=== PATIENT | female | born 1960 | race Caucasian/White ===

== ENCOUNTER → 2020-05-19 15:44 | Outpatient (CLI) | payer OTHER, SELFPAY ==
[2020-05-19 15:52] LABS: Bacteria Urine None Seen; RBC Urine None Seen (0-5/HPF)
[2020-05-19 16:57] LABS: Appearance Urine UA CLEAR; Bilirubin Urine UA NEGATIVE (NEGATIVE); Color Urine UA YELLOW; Glucose Urine UA NEGATIVE (Negative); Ketones Urine UA NEGATIVE (NEGATIVE); Leukocyte Esterase Urine UA NEGATIVE (NEGATIVE); Nitrite Urine UA NEGATIVE (Negative); Occult Blood Urine UA NEGATIVE (Negative); Protein Urine UA NEGATIVE (Negative); Specific Gravity Urine UA 1.015 (1.000-1.035); Urobilinogen Urine UA 0.2 E.U./dL (0.2)
[2020-05-19 16:58] LABS: Add Manual Diff / Slide Review NO; Basophils Absolute Auto 100 /uL (0-100); Basophils Percent Auto 1.1 % (0-2); Eosinophils Absolute Auto 100 /uL (0-450); Eosinophils Percent Auto 2.1 % (2-4); Hematocrit 38.8 % (36-46); Hemoglobin 13.1 g/dL (12.0-16.0); Lymphocytes Absolute Auto 1400 /uL (1100-4500); Lymphocytes Percent Auto 26.7 % (25-40); Mean Corpuscular HGB Conc 33.7 % (30-36); Mean Corpuscular Volume 92.1 fL (80-100); Monocytes Absolute Auto 400 /uL (0-900); Monocytes Percent Auto 7.2 % (3-14); Neutrophils Absolute Auto 3400 /uL (1500-7000); Neutrophils Percent Auto 62.9 % (50-75); Platelet Count 261 X10^3/uL (150-400); Red Blood Cell Count 4.21 X10^6/uL (4.0-5.2); Red Cell Distribution Width 13.4 % (11.6-14.8); White Blood Cell Count 5.4 X10^3/uL (4.5-11.0)
[2020-05-19 17:05] LABS: Squamous Epithelial Cell Urine 0-1 /HPF (0-5/HPF); WBC Urine 0-1/HPF (0-5/HPF)
[2020-05-19 17:06] LABS: Culture Indicated Urine Cult Not Indicated
[2020-05-19 17:21] LABS: BUN Creatinine Ratio 20.7 (6-22); Blood Urea Nitrogen 17 mg/dL (7-17); Calcium 9.5 mg/dL (8.4-10.2); Carbon Dioxide 29 mmol/L (22-32); Chloride 101 mmol/L (98-107); Estimated Glomerular Filt Rate > 60.0 mL/min (>60); Glucose 84 mg/dL (80-110); HEMOLYSIS < 15 (0-50); Potassium 4.4 mmol/L (3.4-5.1); Sodium 137 mmol/L (137-145)
[2020-05-19 17:36] LABS: Hemoglobin A1C% w Est Avg Glu 5.5 % (4.0-6.0)
== END ==
PROVIDERS: Referring Provider Orthopaedic Surgery; Visit Provider Orthopaedic Surgery
DX: Z01.818 Encounter for other preprocedural examination (principal); Z01.812 Encounter for preprocedural laboratory examination; R73.9 Hyperglycemia, unspecified; N39.0 Urinary tract infection, site not specified
CPT/HCPCS: 36415; 80048; 81001; 83036; 85025; 93005

== ENCOUNTER → 2020-05-23 08:47 | Outpatient (CLI) | payer OTHER, SELFPAY ==
[2020-05-23 11:01] LABS: COVID19 -Nasal RAPID Negative (Negative)
== END ==
PROVIDERS: Visit Provider Physician Assistant
DX: Z01.812 Encounter for preprocedural laboratory examination (principal); Z20.822 Contact with and (suspected) exposure to COVID-19
CPT/HCPCS: 87635

== ENCOUNTER 2020-05-24 05:48 | Day surgery (SDC) | payer OTHER, SELFPAY ==
[2020-05-24] VITALS (20 sets, daily range): BP systolic 95–146; BP diastolic 48–78; PULSE 52–67; RESP 10–18; TEMP 36.1–36.9; O2SAT 97–100; BMI 20.3
--- NOTE | 2020-05-24 | DI.RAD.S_ITS ---
PROCEDURE: XR HIP W PEL IF DONE RT 2V INDICATIONS: INNER OP HIP TECHNIQUE: 2 view(s) of the hip acquired. COMPARISON: None. FINDINGS: Bones: Patient is status post right hip arthroplasty, with hardware components in expected positions. The hip joint appears congruent. The visualized bony structures appear intact. Soft tissues: Overlying postoperative changes are noted. No suspicious soft tissue densities. IMPRESSION: Normal right hip appearance after right total hip arthroplasty earlier same day. Dictated by: Brandon Hoffman M.D. on 06/14/2020 at 17:03 Approved by: Brandon Hoffman M.D. on 06/14/2020 at 17:03
--- NOTE | 2020-05-24 06:00 | DI.RAD.S_ITS ---
PROCEDURE: XR HIP W PEL IF DONE RT 2V INDICATIONS: post op films TECHNIQUE: AP pelvis and lateral view of the right hip acquired. COMPARISON: [facility], CR, XR PELVIS WITH LATERAL HIP RIGHT, 08/14/2019, 8:42. [facility], CR, XR PELVIS WITH LATERAL HIP RIGHT, 05/19/2020, 14:54. FINDINGS: Bones: Patient is status post right hip arthroplasty, with hardware components in expected positions. The hip joint appears congruent. The visualized bony structures appear intact. Soft tissues: Overlying postoperative changes are noted. No suspicious soft tissue densities. IMPRESSION: Right hip arthroplasty in anatomic alignment. Dictated by: Rosa Kaba M.D. on 05/24/2020 at 17:26 Approved by: Rosa Kaba M.D. on 05/24/2020 at 17:27
[2020-05-24] MEDS: ACETAMINOPHEN 325 MG TABLET 975 MG PO (06:58)
[2020-05-24] MEDS: VANCOMYCIN 1,000 MG/200 ML PIGGYBACK 200 MG IV (06:58)
[2020-05-24] MEDS: PREGABALIN 75 MG CAPSULE PO (06:59)
[2020-05-24] MEDS: CELECOXIB 200 MG CAPSULE PO (06:59)
[2020-05-24] MEDS: LACTATED RINGERS 1,000 ML 42 ML IV (07:17)
--- NOTE | 2020-05-24 07:34 | PM.PREOP ---
Pre-operative Note COVID-19 COVID-19 status: Negative Interval Note History & Physical reviewed/Exam performed by Physician: Yes Changes to H&P: No
--- NOTE | 2020-05-24 07:35 | P.OP_ITS ---
Operative Date/Time/Diagnoses Date of procedure: 05/24/20 Time of procedure: 07:59 Pre-op diagnosis: right hip OA Post-op diagnosis: same Procedure & Clinicians Procedure: right total hip arthroplasty anterior approach Same procedure as scheduled: Yes Indications: The patient has had progressively worsening right hip pain with radiographic changes consistent with arthritis. Non-operative management has failed and the patient has requested total hip replacement. The risks, benefits and alternatives to surgery were discussed with the patient prior to proceeding. Risks discussed included, but were not limited to, failure to relieve pain, leg length discrepancy, dislocation, stiffness, infection, nerve damage, deep venous thrombosis, pulmonary embolism, stroke, coma, heart attack, permanent paralysis and , as well as the potential need for eventual revision of the prosthetic. Surgeon: Iona Cox Brush Finisher: Brandon Godwin Anesthesia Type: General and Spinal Operative Notes Findings: Severe right hip arthritis, good stability, good bone Closure Type: primary Specimen(s): none sent Prosthetic devices, grafts, tissues, transplants, or devices: [employer]hew 54 R3, size 7 anthology standard offset, minus 3 x 36 Oxinium head, neutral liner, one 20 mm screw Estimated Blood Loss (mL): 250 Blood products transfused: none Procedure in detail: The patient was brought to the operating room. Patient was carefully positioned in the supine position. Time-out was performed and antibiotics were given. Anesthesia was induced. She was positioned in the on the table in order to allow hyperextension of the hip. The right lower extremity was prepped and draped in a standard sterile fashion. An anterior right hip incision was made 1 fingerbreadth lateral to the anterior superior iliac spine and extended distally towards the greater trochanter. Dissection was carried out through skin and subcutaneous tissues. Superficial hemostasis was achieved. The fascia over the tensor fascia pillo was defined and incised with a knife. Two Allis clamps were used to grasp the fascia. Tensor fascia pillo was retracted laterally. A gelpi retractor was placed. Dissection was carried out down along the neck. The circumflex vessels were carefully identified and cauterized with the Aqua Mantis. There was good visualization of the femoral neck. A Cobra was placed superior to the neck and the gluteus fibers were carefully stripped from that superior aspect of the capsule. A 2nd retractor was placed along the inferior aspect of the neck. The rectus insertion along the capsule was partially released. A 3rd retractor that was then gently placed over the rim of the acetabulum under the rectus. Capsule was carefully incised and released from the intertrochanteric line circumferentially superior to the mid sagittal line and inferiorly to the mid sagittal line until the lesser trochanter was palpable. A tag stitch was placed both in the superior and inferior limb of the capsular insertion. Along the acetabulum capsule was also released up to the mid sagittal 12:00 position. A portion of the labrum was resected. A saw was used to perform an osteotomy at the level of the intertrochanteric line and the junction of the superior femoral neck leaving approximately 1 finger breath of residual inferior neck above the lesser trochanter. A 2nd cut was made along the femoral neck at the base of the head and a napkin ring of neck was removed. Corkscrew was placed in the femoral head and the head was removed without difficulty. Retractors were then repositioned around the ac etabulum. Residual labrum was resected and additional osteophytes were removed. A reamer that was 4 mm below the templated size was placed by hand in the acetabulum and it was reamed to centralize the acetabulum. It was then reamed up to 2 under the templated size and fluoroscopy was brought in to confirm the position of the reaming and depth of reaming. I reamed 1 under the anticipated size. A trial cup was placed and noted that it was appropriately sized and fluoroscopy confirmed position and depth. The component was open and inserted without difficulty fluoroscopic imaging was used to confirm that the cup had been adequately seated and was well positioned. it was further stabilized with a single screw. Neutral poly liner was placed. The cup was tested and noted to be stable. Attention was then directed to the femur. The femur was gently hyperextended additional capsular release was performed as needed in order to allow adequate visualization of the proximal femur with elevation of the femur. Patient was placed in a hyperextended slightly adducted position with maximum external rotation. Box osteotome was used to check for any residual neck as well as sclerotic bone along the trochanter. [place] pepper was placed in the femur. Additional broaching was performed. Canal finder was used to determine the alignment of the canal and position. Size 1 broach was placed. The canal was then appropriately broached up to the templated size as long as there was adequate stability of the broach and serial advancement of the broach without excessive impingement. Specific attention was directed at avoiding varus attempting to direct the distal aspect of the broach more anteriorly and avoiding excessive anteversion. Trial reduction showed acceptable range of motion, good stability, no posterior impingement, restorationist of leg length and appropriate lateral shuck. I also hyperflexed the hip and checked that there was no impingement anteriorly and there was good stability with flexion, adduction and internal rotation. Marcaine and Exparel were injected. The stem was placed without difficulty. Repeat trial reduction and x-ray showed acceptable overall position, length, and no evidence of the femoral fracture. Final head was placed. Wound was meticulously irrigated with normal saline. The hip was reduced and additional Exparel and Marcaine were injected. The capsule was closed with interrupted nonabsorbable sutures. The fascia of the tensor was closed with interrupted and running Vicryl. No drain was placed. Any tensor fascia pillo muscle that appeared to be contused or injured which was a minimal amount was carefully resected. Capsule around the tensor was injected with Exparel and Marcaine. The skin was closed with barbed stitches for the subcutaneous tissue and skin. We also used surgical glue. The wound was dressed sterilely. Brief Betadine soak was also used and was meticulously irrigated with normal saline. Patient was transferred to recovery room in satisfactory condition. Complications: none Post-operative Condition: stable Disposition: Acute Care Plan for aftercare: The patient will be maintained on a standard total hip replacement protocol with weight bearing as tolerated and anterior hip pr ecautions. The patient will receive Aspirin and sequential compression devices for DVT prophylaxis. The patient will be discharged home when safe for the home environment.
[2020-05-24] MEDS: CEFAZOLIN 2 GM/100 ML FROZ.PIGGY IV ×2 (08:00→16:09)
[2020-05-24] MEDS: TRANEXAMIC ACID 1,000 MG VIAL 1000 MG INJ ×2 (08:14→10:26)
--- NOTE | 2020-05-24 08:39 | SUR.OPER ---
Supine on padded [place] table with bilateral legs secured in padded positioning boots and suspended in positioning spars, operative leg in traction per surgeon. Head on one pillow. Arm on non-operative side secured on padded armboard <90 degrees abduction. Arm on operative side padded and resting across chest then secured with tape over sheet. Padded perineal post in place per surgeon.
[2020-05-24] MEDS: BUPIVACAINE LIPOSOME 266 MG/20 ML VIAL INJ (08:52)
[2020-05-24] MEDS: BUPIVACAINE 0.5% W/ EPI (PF) 30 ML VIAL INJ (08:55)
[2020-05-24] MEDS: OXYCODONE IR 5 MG TABLET PO (11:43)
[2020-05-24] MEDS: ONDANSETRON 4 MG/2 ML INJ IV (11:43)
--- NOTE | 2020-05-24 12:08 | PC.NURSE ---
Day shift: Pt on unit at approx 1205 from PACU. Oriented to room and call light. RA 99%. VS WNL. Sensation limited BLE's at this time. PPP. She is A&Ox4. Denies any pain or nausea. AGrees to not get OOB w/o help from staff. SCD's tolerated. Dressing anterior rt hip Aquacel is CDI.
[2020-05-24] MEDS: LACTATED RINGERS 1,000 ML 125 ML IV ×2 (12:48→20:10)
[2020-05-24] MEDS: IBUPROFEN 400 MG TABLET PO ×4 (12:48→23:59)
--- NOTE | 2020-05-24 13:55 | PT.IIE ---
Current Diagnoses Unilateral primary osteoarthritis, right hip (05/24/20) Surgery Performed Operation Date: 05/24/20 07:45 Actual Procedures p Total Hip Arthroplasty/Anterior Approach(Right) - Iona Cox MD Surgical History (Last Updated 05/23/20 @ 15:16 by Katy Love, RN) History of appendectomy Medical History (Last Updated 05/23/20 @ 15:16 by Katy Love, RN) History of uterine fibroid Primary localized osteoarthrosis of pelvic region Physical Therapy Inpatient Evaluation/Re-Eval M1 PT/OT-IP Prior Functional Status Start: 05/24/20 14:30 Freq: NEEDED Status: Active Protocol: Document 05/24/20 13:55 AB (Rec: 05/24/20 14:48 AB [email or web address]) Medical Review Prior Functional Status Medical History Reviewed Yes Communication able to make needs known Mobility and Gait pt stated that she is independent with all mobilities and ambulation without AD Social History Household Members spouse,family Living Arrangements House Number of Floors (Floors) Two Floors Number of Stairs To Enter/Railing? 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; pt is going to stay at her son 's house in [facility] and will be here in [place] for ~ 6 weeks M2 PT-IP Current Condition Start: 05/24/20 14:30 Freq: NEEDED Status: Active Protocol: Document 05/24/20 13:55 AB (Rec: 05/24/20 14:48 AB [id number]) Physical Therapy Current Condition Current Condition Evaluation Date 05/24/20 Treatment Diagnosis s/p R SREEDHAR anterior approach; difficulty in walking Onset Date 05/24/20 Precautions Anterior Hip Precautions No Hip Extension,No Hip External Rotation Weight Bearing Status Weight Bearing Status Weight Bear as Tolerated Allowed Weight Bearing Amount (enter % RLE WBAT or #) (%) M3 PT-IP Subjective Start: 05/24/20 14:30 Freq: NEEDED Status: Active Protocol: Document 05/24/20 13:55 AB (Rec: 05/24/20 14:48 AB [email or web address]) Subjective Physical Therapy Visit Type Type Initial Evaluation Visit Start Time 13:55 Visit Stop Time 14:27 Total Visit Minutes 32 Number of SYSTEMS PROJECT MANAGER Visits 0 Physical Therapy Visit Comments Patient Comments pt is agreeable to do PT Therapy Pain Assessment Pain Present Pain Present Denied Pain M4 PT-IP Mobility and Gait Start: 05/24/20 14:30 Freq: NEEDED Status: Active Protocol: Document 05/24/20 13:55 AB (Rec: 05/24/20 14:48 AB [email or web address]) PT-Bed Mobility Assessment Supine to Sit Supine to Sit Standby Assistance Sit to Supine Sit to Supine Standby Assistance PT-Transfer Assessment Sit to and From Stand Sit to and from Stand Maximum Assistance,1 Person Assistance,Use of Upper Extremities Equipment Transfer Assistive Device Gait Belt,Front Wheeled Walker Orthotic/Prosthetic Devices or Brace: No Comments Mobility Comments educated pt on anterior hip precautions. pt completed supine to sit SBA and was able to sit on EOB SBA. pt without c/o dizziness. pt still c/o slight numbness on B thighs but able do move during MMT. completed sit to stand max A and noted decrease motor control on BLE with L> R. cued pt for quad activation and use of BUE on FWW for support. instructed for marching in place and pt completed with max A with decrease BLE motor control. instructed to sit back. ambulation is not appropriate at this time due to pt still has decrease motor control on BLE. pt completed sit to supine SBA. positioned in bed . call light and table placed within reach. Gait Assessment Comments Gait Comments completed marching in place using FWW max A and cues. pls refer to mobility section for details PT-Balance Assessment Sitting Balance and Reactions Static Sitting Balance Ability Good Dynamic Sitting Balance Ability Good Standing Balance and Reactions Static Standing Balance Ability Poor Dynamic Standing Balance Ability Poor Device Used FWW M5 PT-IP Objective Assessments Start: 05/24/20 14:30 Freq: NEEDED Status: Active Protocol: Document 05/24/20 13:55 AB (Rec: 05/24/20 14:48 AB [email or web address]) Orientation Orientation/Cognition Level of Alertness Alert Orientation Name,Age,Birthday,Month,Date, Year,Day of Week,Place, Situation Language Function Ability No Deficits Noted Safety Awareness Decreased Safety Awareness Memory Description No Deficits Noted Gross Range of Motion Lower Extremity ROM Assessment Within Functional Limits Strength Lower Extremity Strength Assessment Bilaterally Impaired Hip 4-/5 Knee 4-/5 Ankle bilateral foot drop L>R Sensation Assessment Sensation Sensation Description Numbness Comments Sensation Comments B thigh numbness but able to feel from knees down to B feet M6 PT-IP Treatment Start: 05/24/20 14:30 Freq: NEEDED Status: Active Protocol: Document 05/24/20 13:55 AB (Rec: 05/24/20 14:48 AB [email or web address]) Physical Therapy Treatment Education Education Provided Precautions,Weight Bearing Status,Post-Op Packet,Safety M7 PT-IP Assessment and Plan Start: 05/24/20 14:30 Freq: NEEDED Status: Active Protocol: Document 05/24/20 13:55 AB (Rec: 05/24/20 14:48 AB [email or web address]) PT Summary Assessment and Plan Potential Rehabilitation Potential Good Status of Condition at Evaluation Evolving Summary Impairments Pain,ROM,Strength,Balance, Coordination,Sensation,Tone, Cognition,Bed Mobility, Transfers,Gait,Activity Tolerance Assessment Summary pt just had surgery this morning S/P R SREEDHAR anterior approach. pt was able to completed sit to stand and maintain standing using FWW max A and cues but limited due to decrease motor control on BLE. will require further assessment for safe d/c plan. Goals Bed Mobility Goal Independent Transfer Goal Independent,Front Wheeled Walker Gait Goal Independent,Front Wheel Walker Gait Distance 200 Other Goals improve ambulation using SPC 250 ft SBA up/down 4 steps L rail SBA and 8 steps R rail SBA Days to Meet Goals 5 Frequency of Treatment Frequency Of Treatment Twice a Day Treatment Plan Physical Therapy Treatment Plan Bed Mobility Training,Transfer Training,Gait Training, Therapeutic Exercise,Balance Retraining,Post Op Education, Discharge Planning,Hot or Cold Pack,Neuromuscular Re-ed, Coordination Retraining,Manual Therapy Precautions Anterior Hip Precautions No Hip Extension,No Hip External Rotation Discharge Recommendations PT Discharge Recommendations Home with Assistance, Outpatient PT Transportation Needs at Discharge Private Vehicle
[2020-05-24] MEDS: ACETAMINOPHEN 325 MG TABLET 650 MG PO ×2 (14:33→20:06)
[2020-05-24] MEDS: DOCUSATE 100 MG CAPSULE PO (20:06)
[2020-05-24] MEDS: ASPIRIN EC 81 MG TABLET PO (20:06)
[2020-05-25] MEDS: CEFAZOLIN 2 GM/100 ML FROZ.PIGGY IV
[2020-05-25 04:37] VITALS: BP 120/72; PULSE 53; RESP 18; TEMP 36.8; O2SAT 100
[2020-05-25] MEDS: OXYCODONE IR 5 MG TABLET PO (04:38)
[2020-05-25] MEDS: IBUPROFEN 400 MG TABLET PO ×2 (05:26→08:21)
[2020-05-25 06:14] LABS: Hematocrit 35.8 % (36-46)
--- NOTE | 2020-05-25 07:49 | P.DS_ITS ---
History of Present Illness History of Present Illness Date Patient Seen: 05/25/20 Time Patient Seen: 07:49 Chief complaint: OPB Narrative: Please refer to previously documented HPI submitted to the chart. Discharge Providers Provider Discharge Date: 05/25/20 Primary care physician: Doctor Jose MD Consults: 05/24/20 06:00 Consult to Anesthesiology Routine Comment: Consulting Provider: Anesthesiologist Reason for consultation: Regional block for post operative pain control 05/24/20 12:08 Consult to Discharge Planning Routine Comment: Consult to Physical Therapy Evaluate & Treat Comment: Physician Instructions: post op SREEDHAR protocol Consult to Respiratory Therapy Evaluate & Treat Comment: Physician Instructions: Evaluate and treat Discharge provider: Brandon Godwin PA-C Summary Hospital Course Discharge Diagnosis: Right hip osteoarthritis Status post right total hip arthroplasty anterior approach Hospital Course: 60-year-old female was appropriately consented for the above procedure performed without difficulty then admitted undergoing normal postoperative course without complications. At the time of discharge she was able to void without difficulty and ambulate with physical therapy clearing her for disposition home. Her pain was controlled with oral pain medications. Her wound was clean dry and intact. There was no concern for related neurovascular compromise or DVT. Prior to discharge the patient denied any lightheadedness, dizziness, chest pain or shortness of breath. She verbalized understanding instructions with regards to her postoperative care. Status at Discharge Cognitive/behavioral status at discharge: oriented Overall status at discharge: patient is progressing back to baseline Time Spent with Patient Time spent: Less than 30 minutes Exam Vital Signs (past 8 hours): - 05/25/20 04:37 Temperature 98.3 F Pulse Rate 53 L Respiratory Rate 18 Blood Pressure 120/72 Pulse Oximetry 100 Oxygen Delivery Method Room Air Oxygen Flow Rate 0 Narrative Exam Narrative: Well-developed well-nourished female seen resting comfortably in bed with regular heart rate and normal inspiratory effort. Her wound was clean dry and intact with noncompressible, nontender and soft calves as well as 2+ distal pulses and normal gross strength and sensation bilaterally. Objective Labs Result Diagrams: 05/25/20 05:34 Labs: Laboratory Results - last 24 hr 05/25/20 05:34 Hgb 12.0 Hct 35.8 L [facility] Medical History (Updated 05/23/20 @ 15:16 by Katy Love RN) History of uterine fibroid Primary localized osteoarthrosis of pelvic region Surgical History (Updated 05/23/20 @ 15:16 by Katy Love RN) History of appendectomy Social History household members: spouse and family Smoking Status: Never smoker alcohol intake: current Discharge Assessment & Plan Assessment and Plan Assessment: 60-year-old female status post right total hip arthroplasty via anterior approach doing well and appropriately discharge postop day 1 Plan of Treatment: Discharge home Follow total hip care protocols Follow-up in clinic in 2 weeks for re-evaluation or sooner as needed Discharge Plan Discharge Plan Patient Disposition: Home Discharge orders & Medications Discharge Orders: Discharge (Order); Ordered 05/25/20 Ordered By: Brandon Godwin Prescriptions: New aspirin 81 mg Tablet,Delayed Release (Dr/Ec) 81 mg PO BID Qty: 60 RF: 0 oxycodone 5 mg Tablet 5 mg PO Q4H PRN (Reason: Pain, Moderate (4-6)) Qty: 60 RF: 0 Continued ketoprofen 100 mg Capsule,Ext Rel. Pellets 24 Hr 100 mg PO DAILY PRN (Reason: Pain) RF: 0 ascorbic acid (vitamin C) [Vitamin C] 500 mg Tablet 500 mg PO DAILY RF: 0 kmijshsuwajj-Dd-nwyu-minerals 18-0.4 mg Tablet 1 tab PO DAILY RF: 0 Discontinued tramadol 50 mg Tablet 50 mg PO DAILY PRN (Reason: Pain) RF: 0 Follow up/Referrals: Doctor Garcia MD [Primary Care Provider] - Iona Cox MD [Physician] - (2 weeks ) Diet/Activity/Treatments Diet: Diet as Tolerated Activity: WBAT Total hip precautions. Walk regularly. Skin/Wound/Dressing Care Report to your healthcare provider any signs of infection, such as:: chills, fever, night sweats, increased pain, unusual drainage and unusual redness Dressing: Keep clean dry and intact Visit Report/Discharge Packet Instructions: DI for Hip Replacement Stand Alone Forms: Surgery Discharge Discharge Data Primary Care Provider: Doctor Jose Attending Provider: Iona Cox
[2020-05-25] MEDS: MULTIVITAMIN 1 TABLET 1 TAB PO (08:21)
[2020-05-25] MEDS: ASCORBIC ACID 500 MG TABLET PO (08:21)
[2020-05-25] MEDS: DOCUSATE 100 MG CAPSULE PO (08:21)
[2020-05-25] MEDS: ASPIRIN EC 81 MG TABLET PO (08:21)
[2020-05-25] MEDS: ACETAMINOPHEN 325 MG TABLET 650 MG PO (08:22)
[2020-05-25] MEDS: SODIUM CHLORIDE 0.9% FLUSH 10 ML IV (08:24)
[2020-05-25 08:45] VITALS: BP 101/57; PULSE 60; RESP 20; TEMP 36.6; O2SAT 97
[2020-05-25 09:20] VITALS: O2SAT 100
--- NOTE | 2020-05-25 09:25 | PT.IPTN ---
Current Diagnoses Unilateral primary osteoarthritis, right hip (05/24/20) Surgery Performed Operation Date: 05/24/20 07:45 Actual Procedures p Total Hip Arthroplasty/Anterior Approach(Right) - Iona Cox MD Physical Therapy Treatment Note M2 PT-IP Current Condition Start: 05/24/20 14:30 Freq: NEEDED Status: Active Protocol: Document 05/24/20 13:55 AB (Rec: 05/24/20 14:48 AB [email or web address]) Physical Therapy Current Condition Current Condition Evaluation Date 05/24/20 Treatment Diagnosis s/p R SREEDHAR anterior approach; difficulty in walking Onset Date 05/24/20 Precautions Anterior Hip Precautions No Hip Extension,No Hip External Rotation Weight Bearing Status Weight Bearing Status Weight Bear as Tolerated Allowed Weight Bearing Amount (enter % RLE WBAT or #) (%) M3 PT-IP Subjective Start: 05/24/20 14:30 Freq: NEEDED Status: Active Protocol: Document 05/25/20 09:04 SP (Rec: 05/25/20 13:07 SP [email or web address]) Subjective Physical Therapy Visit Type Type Treatment Note Visit Start Time 09:04 Visit Stop Time 09:25 Total Visit Minutes 21 Number of SCREWHEAD [employer]ER [employer] POL[employer]ER Visits 1 Physical Therapy Visit Comments Patient Comments pt is agreeable to do PT Therapy Pain Assessment Pain When Pain Assessed During Mobility Pain Present Pain Present Pain Reported Location right hip Intensity 1 Scale Used Numeric (0 - 10) Pain Management Techniques Re-positioning,Timing of Activity with Medications M4 PT-IP Mobility and Gait Start: 05/24/20 14:30 Freq: NEEDED Status: Active Protocol: Document 05/25/20 09:04 SP (Rec: 05/25/20 13:07 SP [email or web address]) PT-Bed Mobility Assessment Supine to Sit Supine to Sit Standby Assistance Sit to Supine Sit to Supine Standby Assistance PT-Transfer Assessment Sit to and From Stand Sit to and from Stand Independent,Use of Upper Extremities Equipment Transfer Assistive Device Gait Belt,Front Wheeled Walker Orthotic/Prosthetic Devices or Brace: No Transfers Transfer Destination Chair Transfer Technique Pt ambulated using FWW. Transfer Ability Level of Assist Standby Assistance,Use of Upper Extremities Comments Mobility Comments Good recall anterior hip precautions. pt completed supine to sit SBA and was able to sit on EOB SBA. completed sit <> stand to SBA using FWW , good safe positioning, ambulated further into hallway to stairs then around nursing station approx 240ft sBA with occasional cuing for smaller step w/ LLE to maintain no hip ext on RLE precaution with improved carryover. Pt returned to chair when entered room with cue x1 for slow descent to assist decrease discomfort reported upon sitting with same UE support demonstrated. Pt had call light and all need in reach before left. Pt is ok to return home with family to assist her when medically cleared and will call outpt therapy to set up appt soon. call light and table placed within reach. Gait Assessment Gait Gait Assistance Required: Standby Assistance Distance (Feet) 240 Able to Maintain Weight Bearing Status Yes During Gait Assistive Devices Assistive Device Gait Belt,Front Wheeled Walker Orthotic/Prosthetic Devices or Brace: No Gait Deviations General Gait Pattern Antalgic,Decreased Stride Length,Decreased Feet Clearance Factors Limiting Gait Function Factors Limiting Gait Function Decreased Activity Tolerance, Decreased Strength,Pain,Poor Safety Awareness Comments Gait Comments Completed gait around nursing station using FWW, step over step, cues for maintaining hip anterior precautions LLE not passing RLE, no hip extension. Stair Climbing Assessment Evaluation Level of Assist On Stairs Standby Assistance Devices Stair Climbing Assistive Devices Straight Cane,Left Railing, Right Railing Technique/Endurance Stair Climbing Direction Ascend and Descend Stair Climbing Technique Step to Step Number of Steps Climbed 3 Stair Climbing Set # Repetitions (reps) 3 Comments Stair Climbing Comments Step to patterning, cue x1 good carryover with self verbalizing patterning, use of RHR and SPC then LHR and SPC on other side to assimulate home flights SBA, stable. PT-Balance Assessment Sitting Balance and Reactions Static Sitting Balance Ability Normal Dynamic Sitting Balance Ability Normal Standing Balance and Reactions Static Standing Balance Ability Good Dynamic Standing Balance Ability Good Device Used FWW M5 PT-IP Objective Assessments Start: 05/24/20 14:30 Freq: NEEDED Status: Active Protocol: Document 05/24/20 13:55 AB (Rec: 05/24/20 14:48 AB [email or web address]) Orientation Orientation/Cognition Level of Alertness Alert Orientation Name,Age,Birthday,Month,Date, Year,Day of Week,Place, Situation Language Function Ability No Deficits Noted Safety Awareness Decreased Safety Awareness Memory Description No Deficits Noted Gross Range of Motion Lower Extremity ROM Assessment Within Functional Limits Strength Lower Extremity Strength Assessment Bilaterally Impaired Hip 4-/5 Knee 4-/5 Ankle bilateral foot drop L>R Sensation Assessment Sensation Sensation Description Numbness Comments Sensation Comments B thigh numbness but able to feel from knees down to B feet M6 PT-IP Treatment Start: 05/24/20 14:30 Freq: NEEDED Status: Active Protocol: Document 05/25/20 09:04 SP (Rec: 05/25/20 13:07 SP [email or web address]) Physical Therapy Treatment Education Education Provided Precautions,Weight Bearing Status,Post-Op Packet,Safety M7 PT-IP Assessment and Plan Start: 05/24/20 14:30 Freq: NEEDED Status: Active Protocol: Document 05/25/20 09:04 SP (Rec: 05/25/20 13:07 SP [email or web address]) PT Summary Assessment and Plan Potential Rehabilitation Potential Good Status of Condition at Evaluation Evolving Summary Impairments Pain,ROM,Strength,Balance, Coordination,Sensation,Tone, Cognition,Bed Mobility, Transfers,Gait,Activity Tolerance Progress Towards Goals Progressing Toward Goals,Slow Progress due to Activity Tolerance Assessment Summary Pt I in bed mob, sBA during all mobility using FWW, completed stair 1 HR and SPC for comfort self safety mgt sBA. Pt is ok to return home with family to assist when medically cleared and pt will call to set up outpt therapy. Goals Bed Mobility Goal Independent Transfer Goal Independent,Front Wheeled Walker Gait Goal Independent,Front Wheel Walker Gait Distance 200 Other Goals improve ambulation using SPC 250 ft SBA up/down 4 steps L rail SBA and 8 steps R rail SBA Days to Meet Goals 5 Frequency of Treatment Frequency Of Treatment Twice a Day Treatment Plan Physical Therapy Treatment Plan Bed Mobility Training,Transfer Training,Gait Training, Therapeutic Exercise,Balance Retraining,Post Op Education, Discharge Planning,Hot or Cold Pack,Neuromuscular Re-ed, Coordination Retraining,Manual Therapy Precautions Anterior Hip Precautions No Hip Extension,No Hip External Rotation Discharge Recommendations PT Discharge Recommendations Home with Assistance, Outpatient PT Transportation Needs at Discharge Private Vehicle
--- NOTE | 2020-05-25 10:33 | PC.NURSE ---
Assess- Patient is awake and states that she does not need oxycodone at this time. Given tylenol and Ibuprofen and this seems to be helping discomfort. She is a SBA and will be discharging home today around 1230, her will be picking her up after his doctors appointment. She has an aquacel dressing to her anterior r.hip, cms and ppx2.
--- NOTE | 2020-05-25 10:50 | CM.DANOTE ---
DCP/Assessment: Reviewed chart. Patient is a 60yr old female admitted to [facility] for elective right SREEDHAR performed on 05-24-[address] Cox. No PCP indicated. Primary payor 1) [employer]. Met with patient explained CM/SW role. Patient alert and oriented resting in bed at time of visit. Therapy preparing to see. Patient reports that she travels a lot with spouse. Patient currently reports last place she resided at was [place]. Current recommendation from therapy is for patient to return home and follow up with therapy as outpatient. FWW ordered and will be provided prior to d/c. P: Home today. KAYLAN Chris Discharge Planning/Care Management CM Discharge Assessment Start: 05/25/20 09:25 Freq: Status: Active Protocol: Document 05/25/20 10:26 KJS (Rec: 05/25/20 10:49 KJS [id number]) Discharge Planning Assessment Assigned Global Marketing Specialist KAYLAN Chris DPOA/Assigned Designee Name Stephan Mendiola (spouse) Advance Directives? No History Provided By Patient,Medical Record Prior Living Arrangements House Household Members spouse,family Type of transporation used prior to Drives own vehicle admit Independent with ADL's Yes Is patient alert and oriented? Yes Caregiver for Another No Patient/Family Preference OP PT Therapy Comment Patient reports that she will be setting up outpatient therapy at [facility] in [place] Barriers to Discharge No Discharge Plan Home Transportation Arrangement Family to provide transport. Referrals Initiated Other Additional Comment Order obtained for FWW for home use Whiteboard Updated in Patient Room with Yes name and ext. # of Global Marketing Specialist Review Status In Process Next Review Type Continued Stay Review Document 05/25/20 10:50 KJS (Rec: 05/25/20 10:50 KJS [email or web address]) Discharge Planning Assessment Assigned Global Marketing Specialist KAYLAN Chris DPOA/Assigned Designee Name Stephan Mendiola (spouse) [phone] Advance Directives? No History Provided By Patient,Medical Record Prior Living Arrangements House Household Members spouse,family Type of transporation used prior to Drives own vehicle admit Independent with ADL's Yes Is patient alert and oriented? Yes Caregiver for Another No Patient/Family Preference OP PT Therapy Comment Patient reports that she will be setting up outpatient therapy at [facility] in [place] Barriers to Discharge No Discharge Plan Home Transportation Arrangement Family to provide transport. Referrals Initiated Other Additional Comment Order obtained for FWW for home use Whiteboard Updated in Patient Room with Yes name and ext. # of Global Marketing Specialist Review Status In Process Next Review Type Continued Stay Review Pre-Anesthesia Assessment Start: 05/23/20 15:00 Freq: Status: Complete Protocol: Document 05/23/20 15:00 [facility] (Rec: 05/23/20 15:28 [facility] [id number]) Pre-Anesthesia Assessment Preferred Name Gayle Patient Information Reviewed Via Chart Review,Phone Assessment Assessment Completed With Patient Diagnostic Results BMP/CMP,CBC,EKG,Urinalysis, Other Comment A1c, covid Seen Specialist in Last 12 Months Yes Specialist Seen Orthopedist Comment International teacher - is in [facility] Primary Language Greek Preferred Language Greek Fruit Checker Required No Height 177.8 cm Hearing Ability Normal Visual Impairment Partially Limited Barriers to Learning Visual Comment reading glasses Hx Anesthesia Reactions No Hx Family Anesthesia Reaction No Hx Malignant Hyperthermia No Hx Blood Transfusions Yes: at - r/t jaundice Hx Blood Transfusion Reaction No Anesthesia Review Requested No Visual Training Aide No alcohol intake current alcohol intake frequency a few times a week Smoking Status Never smoker Substance Use Type painkillers Pain Present Pain Reported Comment Right hip Musculoskeletal Symptoms Abnormal Gait,Back Pain, Difficulty Walking,Joint Pain, Joint Stiffness,Joint Swelling ,Limited Range of Motion History of Falling (Recent or History of No ) Patient is completely paralyzed or No completely immobile Ambulatory Aid None/bed rest/nurse assist Mental Status Forgets limitations Comment Pt has a cane (doesn't use), aware of walker, declined to get for post op Is patient on oxygen? No Does patient have GIPSON/SOB No Hx Sleep Apnea No CPAP/BIPAP use not prescribed Will Bring CPAP/BIPAP DOS No Currently Taking a Beta Marcy No Can You Climb a Flight of Stairs Without No SOB Hx Chest Pain No Hx SOB No Hx Syncope or Dizziness No Anti-Coagulant Therapy No Has a Joint Maker Machine No Cardiac Testing No Hx Pacemaker/ICD No Pacemaker Rep Required? No Cardiac Clearance Received Not Applicable Diet Type At Home Regular dysphagia No Urinary Catheter Present No Hx Urinary Self Catheterization No Diabetes No Patient No Lactating No Hx Drug Resistant Organism No Presence of External or Internal Medical No Devices Have you had any close contact with No someone diagnosed with COVID-19? Are you experiencing any of these No symptoms symptoms? Evaluation/Screening for possible COVID- Yes 19 infection completed? Comment Covid negative 05/23/20 Marital Status Lives With spouse,family Prior Living Arrangements House Number of Floors (Floors) Two Floors Number of Stairs To Enter/Railing? Staying with her son - 4 steps into the house, Bedroom up 10 stairs Support System Spouse Does the Patient Have Assistance After Yes Surgery Patient Discharge Plan Description Return Home Feels Safe in Current Environment Yes Been Physically Hurt or Threatened By a No Person in Current Environment Do you have thoughts of harming yourself None or others? Are you currently considering suicide? No Do you have a plan to hurt yourself or No Plan others? Do You Have Any Spiritual Beliefs That No May Affect Your HC Choices? Do You Have Any Cultural Practices That No May Affect Your HC Choices? Who Can We Speak to About Patient's Care Family & Friends Identifying Code for Release of Patient Declined Information Health Care Proxy/Next of Kin - Stephan Mendiola Health Care Proxy Emergency Contact Name - Stephan Mendiola Emergency Contact Advance Directives? No Power of Affirmative Action Specialist Yes Power of Affirmative Action Specialist Name - Stephan Mendiola Power of Affirmative Action Specialist PAC Instructions Assistance for 24 hours post- op,Do not shave/clip surgical site,Durable medical equipment ,Medications to take/avoid, Nasal antibiotic,No ETOH/ petroleum product on skin DOS, NPO,Post-op transportation,Pre -op antibiotic,Pre-surgical wash,Sensory aids,Sturdy shoes /comfortable clothes,Do not bring valuables and remove jewelry
== END 2020-05-25 13:10 | disposition home or self-care (01) ==
LOC: OR 06:05 → AC 06:09
PROVIDERS: Visit Provider Orthopaedic Surgery
PROC: (CPT 27130; principal; 2020-05-24 07:45)
DX: M16.11 Unilateral primary osteoarthritis, right hip (principal)
CPT/HCPCS: 27130; 36415; 73502; 76000; 85014; 85018; 97116; 97162; C1776; C9290; J0690; J1100; J2250; J2274; J2405; J2704; J3010